=== PATIENT | male | born 1980 | race Caucasian/White ===

== ENCOUNTER 2019-09-17 13:56 | Emergency (ER) | payer SELFPAY ==
[~2019-09-17] VITALS: Ht 175.3 cm; Wt 88.0 kg
--- NOTE | 2019-09-17 14:00 | NUR ---
PT AMBULATED TO BED 7, STEADY GAIT.
[2019-09-17 14:06] VITALS: BP 116/60
--- NOTE | 2019-09-17 14:15 | NUR ---
39 Y/M PRESENTS FOR LACERATION OF R RING AND MIDDLE FINGER LAST NIGHT AT 1030PM. PT REPORTS HIS HAND SLIPPED WHILE HE WAS WORKING ON CAR "I WAS CRANKING A NUT WITH A WRENCH". SMALL SUPERFICIAL SCRAP ON MIDDLE FINER. RIGHT RING FINGER LACERATION APPEARS DEEP, EDEMATOUS, AND IN A V SHAPE. PT DENIES FEVER. NO PURULENT EXUDATE NOTED. DENIES PAIN. CMS INTACT. PMH- DENIES NKDA RX DENIES
--- NOTE | 2019-09-17 14:18 | NUR ---
DR. MONSIVAIS AT BEDSIDE.
[2019-09-17] MEDS ORDERED: LIDOCAINE MPF 1% 10 MG/ML VIAL INJ ONE (14:20)
--- NOTE | 2019-09-17 14:20 | NUR ---
PT REPORTS LAST TDAP WITHIN THESE PASSED 7 YEARS.
--- NOTE | 2019-09-17 14:25 | NUR ---
DR. MONSIVAIS AT BEDSIDE FOR LACERATION REPAIR.
[2019-09-17 14:47] VITALS: BP 116/60
== END 2019-09-17 14:47 | disposition home or self-care (01) ==
LOC: MED 13:56
DX: S61.411A Laceration without foreign body of right hand, initial encounter (principal); W22.8XXA Striking against or struck by other objects, initial encounter; Y93.89 Activity, other specified; Y92.89 Other specified places as the place of occurrence of the external cause; Y99.8 Other external cause status
CPT/HCPCS: 12001; 99282; J2001

== ENCOUNTER 2019-11-15 10:36 | Emergency (ER) | payer SELFPAY ==
[~2019-11-15] VITALS: Ht 175.3 cm; Wt 83.9 kg
[2019-11-15 10:38] VITALS: BP 98/52
--- NOTE | 2019-11-15 10:50 | NUR ---
DR. LOPEZ EVALUATING PT AT BEDSIDE
--- NOTE | 2019-11-15 10:50 | NUR ---
PT AMBULATED TO ER BED 12
--- NOTE | 2019-11-15 11:05 | NUR ---
PT AWARE URINE SAMPLE NEEDED
--- NOTE | 2019-11-15 11:06 | NUR ---
TO CT VIA W/C
[2019-11-15] MEDS: IBUPROFEN 400 MG TAB PO ONE ×2 (11:09→11:20)
[2019-11-15] MEDS: ACETAMINOPHEN EXTRA STRENGTH 500 MG TAB PO ONE ×2 (11:09→11:20)
--- NOTE | 2019-11-15 11:12 | NUR ---
PT BACK TO BED 12 VIA W/C
--- NOTE | 2019-11-15 11:13 | NUR ---
39/M C/O RIGHT GROIN, RIGHT TESTICLE & RLQ ABDOMINAL PAIN AFTER LIFTING HEAVY BAG X 5 DAYS. NAD. VSS. 12/06 PAIN AT THIS TIME. MED HX: DENIES
--- NOTE | 2019-11-15 11:48 | NUR ---
U/S TECH AT BEDSIDE
--- NOTE | 2019-11-15 11:50 | NUR ---
DR. LOPEZ EVALUATING PT AT BEDSIDE
[2019-11-15 12:08] VITALS: BP 106/74
== END 2019-11-15 12:05 | disposition home or self-care (01) ==
LOC: MED 10:36
DX: S39.011A Strain of muscle, fascia and tendon of abdomen, initial encounter (principal); F12.90 Cannabis use, unspecified, uncomplicated; F17.210 Nicotine dependence, cigarettes, uncomplicated; X58.XXXA Exposure to other specified factors, initial encounter; Y93.89 Activity, other specified; Y92.89 Other specified places as the place of occurrence of the external cause; Y99.8 Other external cause status
CPT/HCPCS: 74176; 76870; 81002; 99284; Q0092

== ENCOUNTER 2020-04-27 04:20 | Emergency (ER) | payer SELFPAY ==
[~2020-04-27] VITALS: Ht 175.3 cm; Wt 81.6 kg
[2020-04-27 04:22] VITALS: BP 115/69
--- NOTE | 2020-04-27 04:26 | NUR ---
TO BED # 04 AMBULATORY
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
[2020-04-27 05:08] VITALS: BP 115/69
--- NOTE | 2020-04-27 05:09 | NUR ---
Patient discharged with v/s stable. Written and verbal after care instructions given and explained. Patient verbalized understanding. Ambulatory with steady gait. All questions addressed prior to discharge. Advised to follow up with PMD.
== END 2020-04-27 05:09 | disposition home or self-care (01) ==
LOC: MED 04:20
DX: S01.111A Laceration without foreign body of right eyelid and periocular area, initial encounter (principal); X58.XXXA Exposure to other specified factors, initial encounter; Y93.89 Activity, other specified; Y92.89 Other specified places as the place of occurrence of the external cause; Y99.8 Other external cause status
CPT/HCPCS: 99282

== ENCOUNTER 2021-02-24 23:30 | Emergency (ER) | payer MEDICAID ==
[~2021-02-24] VITALS: Ht 175.3 cm; Wt 81.6 kg
[2021-02-24 23:41] VITALS: BP 112/64
--- NOTE | 2021-02-24 23:41 | NUR ---
TO BED AMBULATORY
--- NOTE | 2021-02-25 00:03 | NUR ---
Dr. Rascon examining patient.
[2021-02-25] MEDS ORDERED: DEXAMETHASONE 4 MG/ML VIAL PO ONE (00:35)
[2021-02-25] MEDS ORDERED: LORA10TA19 PO (00:37)
[2021-02-25 00:57] VITALS: BP 112/64
--- NOTE | 2021-02-25 00:57 | NUR ---
SEEN AND DISCHARGED BY NA SPRINGER. Patient discharged with v/s stable. Written and verbal after care instructions given and explained. Patient alert, oriented and verbalized understanding of instructions. Ambulatory with steady gait. All questions addressed prior to discharge. ID band removed. Patient advised to follow up with PMD. Rx of CLARITIN. given. Patient educated on indication of medication including possible reaction and side effects. Opportunity to ask questions provided and answered.
== END 2021-02-25 00:57 | disposition home or self-care (01) ==
LOC: MED 23:30
DX: L50.0 Allergic urticaria (principal)
CPT/HCPCS: 99283; J1100; Q0163

== ENCOUNTER 2021-05-05 19:28 | Emergency (ER) | payer MEDICAID ==
[~2021-05-05] VITALS: Ht 175.3 cm; Wt 80.3 kg
[~2021-05-05 19:28] MED LIST: LORA10TA19 PO
[2021-05-05 20:44] VITALS: BP 118/73
--- NOTE | 2021-05-05 20:50 | NUR ---
PT IN LOBBY.
--- NOTE | 2021-05-05 22:37 | NUR ---
PT TAKEN TO BED 6
--- NOTE | 2021-05-05 22:37 | NUR ---
RECEIVED IN BED 6 WITH C/O LEFT SHOULDER PAIN SINCE THIS AM. PT STATES " I JUST STRETCHED THIS MORNING AND FELT IT POP" GUARDED ROM NOTED
[2021-05-05] MEDS ORDERED: KETOROLAC 30 MG/ML VIAL IM ONE (23:20)
--- NOTE | 2021-05-05 23:20 | NUR ---
MEDICATED ORDERED FOR PAIN
[2021-05-05] MEDS ORDERED: DIAZ5TAB7 PO (23:23)
[2021-05-05] MEDS ORDERED: NAPR-54 PO (23:23)
--- NOTE | 2021-05-05 23:35 | NUR ---
Patient discharged with v/s stable. Written and verbal after care instructions given and explained. Patient alert, oriented and verbalized understanding of instructions. Ambulatory with steady gait. All questions addressed prior to discharge. ID band removed. Patient advised to follow up with PMD. Rx of VALIUM & NAPROSYN given. Patient educated on indication of medication including possible reaction and side effects. Opportunity to ask questions provided and answered.
[2021-05-05 23:37] VITALS: BP 118/73
== END 2021-05-05 23:35 | disposition home or self-care (01) ==
LOC: MED 19:28
DX: S46.912A Strain of unspecified muscle, fascia and tendon at shoulder and upper arm level, left arm, initial encounter (principal); X50.0XXA Overexertion from strenuous movement or load, initial encounter; Y93.89 Activity, other specified; Y92.89 Other specified places as the place of occurrence of the external cause; Y99.8 Other external cause status
CPT/HCPCS: 73030; 96372; 99283; J1885

== ENCOUNTER 2021-07-11 20:31 | Emergency (ER) | payer MEDICAID ==
[~2021-07-11] VITALS: Ht 175.3 cm; Wt 82.6 kg
[~2021-07-11 20:31] MED LIST changes: +DIAZ5TAB8 PO; +NAPR-54 PO
[2021-07-11 21:07] VITALS: BP 102/75
--- NOTE | 2021-07-11 21:12 | NUR ---
pt sent to lobby.
--- NOTE | 2021-07-11 22:00 | NUR ---
pt back from rad.
--- NOTE | 2021-07-11 23:07 | NUR ---
dante wylie assessing pt in [place]
[2021-07-11] MEDS ORDERED: PRED20TA5 PO (23:12)
[2021-07-11 23:20] VITALS: BP 102/75
== END 2021-07-11 23:20 | disposition home or self-care (01) ==
LOC: MED 20:31
DX: G56.20 Lesion of ulnar nerve, unspecified upper limb (principal); Z79.899 Other long term (current) drug therapy
CPT/HCPCS: 73130; 99283

== ENCOUNTER 2021-10-31 15:38 | Emergency (ER) | payer MEDICAID ==
[~2021-10-31] VITALS: Ht 175.3 cm; Wt 64.4 kg
[~2021-10-31 15:38] MED LIST changes: +PRED20TA5 PO
[2021-10-31 16:17] VITALS: BP 125/72
[2021-10-31] MEDS ORDERED: IBUP-2213 PO (17:50)
--- NOTE | 2021-10-31 18:14 | NUR ---
ASKED DR STOKES IF HE WOULD LIKE TO TELEPSYCH PT. PT STATED "NOPE, JUST GIVE HIM A MENTAL HEALTH PACKET" MENTAL HEALTH PACKET PROVIDED. PT DENIES HI/SI
--- NOTE | 2021-10-31 18:15 | NUR ---
Patient discharged with v/s stable. Written and verbal after care instructions ABOUT TISSUE ADHESIVE WOUND CARE AND FACIAL OR SCALP CONTUSION given and explained. Patient alert, oriented and verbalized understanding of instructions. Ambulatory with steady gait. All questions addressed prior to discharge. ID band removed. Patient advised to follow up with PMD. Rx of IBUPROFEN given. Patient educated on indication of medication including possible reaction and side effects. Opportunity to ask questions provided and answered.
== END 2021-10-31 18:15 | disposition home or self-care (01) ==
LOC: MED 15:38
DX: S01.112A Laceration without foreign body of left eyelid and periocular area, initial encounter (principal); F12.90 Cannabis use, unspecified, uncomplicated; Z79.899 Other long term (current) drug therapy; X83.8XXA Intentional self-harm by other specified means, initial encounter; Y93.89 Activity, other specified; Y92.89 Other specified places as the place of occurrence of the external cause; Y99.8 Other external cause status
CPT/HCPCS: 12013; 99282

== ENCOUNTER 2022-05-18 11:13 | Emergency (ER) | payer MEDICAID, OTHER ==
[~2022-05-18] VITALS: Ht 172.7 cm; Wt 74.8 kg
[~2022-05-18 11:13] MED LIST changes: +IBUP-2213 PO
[2022-05-18 11:19] VITALS: BP 138/79
--- NOTE | 2022-05-18 11:23 | NUR ---
Pt ambulated to bed 09.
--- NOTE | 2022-05-18 11:44 | NUR ---
DR SELBY AT BEDSIDE FOR EVAL
[2022-05-18] MEDS ORDERED: HALOPERIDOL IM 5 MG/ML VIAL IM ONE (11:50)
[2022-05-18] MEDS ORDERED: ONDANSETRON 4 MG/2 ML VIAL IVP ONE (11:50)
[2022-05-18] MEDS ORDERED: NACL 0.9% 1,000 ML IV SCH (11:50)
--- NOTE | 2022-05-18 11:50 | NUR ---
41M presents to ED with c/o diarrhea today, N/V and ABD pain x1 week. Pt reports a constant, burning/cramping like, 10/10 pain to ABD, states he took Pepto bismol with mild relief. Pt denies taking any meds today. Pt denies fevers today, chills present upon assessment. Pt placed on bedside monitor.
[2022-05-18 12:07] LABS: BASOPHILS # (AUTO) 0.1 K/uL (0.00-0.22); BASOPHILS % (AUTO) 0.4 % (0.0-2.0); EOSINOPHILS # (AUTO) 0.3 K/uL (0-0.4); EOSINOPHILS % (AUTO) 1.8 % (0.0-4.0); HEMATOCRIT 48.3 % (36-52); LYMPHOCYTES # (AUTO) 1.2 K/uL (2.0-11.5); LYMPHOCYTES % (AUTO) 8.2 % (20.5-51.1); MEAN CORPUSCULAR HEMOGLOBIN 31 pg (27-31); MEAN CORPUSCULAR HGB CONC 33 g/dL (33-37); MEAN CORPUSCULAR VOLUME 94.8 fL (80-94); MONOCYTES # (AUTO) 0.8 K/uL (0.8-1.0); MONOCYTES % (AUTO) 5.3 % (1.7-9.3); NEUTROPHILS # (AUTO) 12.2 K/uL (1.8-7.7); NEUTROPHILS % (AUTO) 84.3 % (42.2-75.2); PLATELET COUNT (AUTO) 256 K/uL (140-450); RED BLOOD CELL COUNT(AUTO) 5.09 MIL/uL (4.20-6.10); WHITE BLOOD COUNT (AUTO) 14.5 K/uL (4.8-10.8)
[2022-05-18 12:19] LABS: ALBUMIN 4.6 g/dL (3.4-5.0); ANION GAP 13.4 (8-16); CARBON DIOXIDE 28.7 mmol/L (21-32); POTASSIUM 4.1 mmol/L (3.5-5.1); TOTAL BILIRUBIN 0.7 mg/dL (0.0-1.0)
[2022-05-18] MEDS ORDERED: diphenhydrAMINE 50 MG/ML VIAL IVP ONE (12:35)
[2022-05-18] MEDS ORDERED: KETOROLAC 30 MG/ML VIAL IVP ONE (12:35)
[2022-05-18] MEDS ORDERED: METOCLOPRAMIDE 10 MG/2 ML INJ VIAL IVP ONE (12:35)
[2022-05-18] MEDS ORDERED: ONDA-188 SL (12:37)
[2022-05-18] MEDS ORDERED: FAMO-90 PO (12:37)
[2022-05-18] MEDS ORDERED: BISM262C10 PO (12:37)
--- NOTE | 2022-05-18 12:40 | NUR ---
Pt unable to provide urine at this time.
--- NOTE | 2022-05-18 13:48 | NUR ---
IV removed, catheter intact and site benign. Applied folded 4x4 gauze and tape to stop bleeding.
[2022-05-18 13:49] VITALS: BP 92/50
--- NOTE | 2022-05-18 13:49 | NUR ---
Patient discharged with v/s stable. Written and verbal after care instructions given and explained. Patient alert, oriented and verbalized understanding of instructions. Ambulatory with steady gait. All questions addressed prior to discharge. ID band removed. Patient advised to follow up with PMD. Rx of BISMATROL, PEPCID, ZOFRAN given. Patient educated on indication of medication including possible reaction and side effects. Opportunity to ask questions provided and answered.
== END 2022-05-18 13:49 | disposition home or self-care (01) ==
LOC: MED 11:13
DX: R11.2 Nausea with vomiting, unspecified (principal); R10.13 Epigastric pain; R19.7 Diarrhea, unspecified; F32.9 Major depressive disorder, single episode, unspecified; F12.90 Cannabis use, unspecified, uncomplicated; Z79.899 Other long term (current) drug therapy
CPT/HCPCS: 36415; 71045; 80053; 83690; 85025; 96361; 96372; 96374; 96375; 99284; J1200; J1630; J1885; J2405; J2765; J7030